=== PATIENT | female | born 1990 | race Caucasian/White ===

== ENCOUNTER 2018-06-04 10:29 | Emergency (ER) | payer OTHER ==
[~2018-06-04] VITALS: Ht 157.5 cm; Wt 81.6 kg
[2018-06-04 10:40] VITALS: Ht 157.5 cm; Wt 81.6 kg
[2018-06-04 12:45] VITALS: BP 116/76
== END 2018-06-04 12:46 | disposition home or self-care (01) ==
LOC: ED 10:29
DX: F45.8 Other somatoform disorders (principal); F43.0 Acute stress reaction